=== PATIENT | male | born 1975 ===

== ENCOUNTER 2024-04-12 13:20 | Emergency (ER) | payer OTHER, SELFPAY ==
[2024-04-12] VITALS (16 sets, daily range): BP systolic 120–137; BP diastolic 74–89; PULSE 62–86; RESP 16–20; TEMP 36.6; O2SAT 95–100; BMI 30.8
[2024-04-12] MEDS: ONDANSETRON 2 MG/ML inj 4 MG IVP (13:30)
--- NOTE | 2024-04-12 13:34 | CRLHL7_ITS ---
For Patients: As a result of the Century Cures Act, medical imaging exams and procedure reports are released immediately into your electronic medical record. You may view this report before your referring provider. If you have questions, please contact your health care provider. INDICATION: Right flank pain. COMPARISON: None. TECHNIQUE: CT abdomen and pelvis without intravenous contrast; coronal and sagittal reformats. FINDINGS: Calcified granuloma left lingula and right lower lobe. No pulmonary nodules through the lung bases. No pleural effusion. No focal hepatic or splenic pathology. No pancreatic pathology. A tiny gallstone. No adrenal pathology. No kidney stones or obstructive uropathy. No retroperitoneal lymphadenopathy. No evidence of abdominal or pelvic ascites. Normal appendix. CT study of the pelvis is unremarkable. Impression : 1. Tiny gallstone. 2. No kidney stones or obstructive uropathy. 3. Normal appendix. 4. Negative unenhanced CT abdomen and pelvis . Please note that all CT scans at this facility use dose modulation, iterative reconstruction, and/or weight-based dosing when appropriate to reduce radiation dose to as low as reasonably achievable. Dictated by Ana Paula Bridges MD @ 04/12/2024 3:20:01 PM (Electronically Signed)
--- NOTE | 2024-04-12 13:37 | ED_ITS ---
HPI - General Adult General Chief complaint: Flank Pain Stated complaint: back and abd pain, right side Time Seen by Provider: 04/12/24 13:27 Source: patient Mode of arrival: ambulatory Limitations: no limitations History of Present Illness HPI narrative: 49-year-old, generally healthy male on no medications, presenting today with right flank pain. Pain has been present for a couple of days but got significantly worse today. It caused him to feel very nauseated in diaphoretic. He states that standing up makes the pain worse. He denies diarrhea or constipation, last bowel movement was earlier today and was normal. He denies increased urinary frequency, urgency or dysuria. He denies any blood in his urine or stool. He has not vomited. He denies fevers or chills. The pain generally stays in the right flank area and does not radiate. He denies any trauma to the area. Related Data Previous Rx's ?Medication ?Instructions ?Recorded ketorolac 10 mg tablet 10 mg PO TID 5 days #15 tabs 04/12/24 tamsulosin 0.4 mg capsule (Flomax) 0.4 mg PO DAILY #30 caps 04/12/24 Allergies Allergy/AdvReac Type Severity Reaction Status Date / Time No Known Drug Allergies Allergy Verified 04/12/24 13:28 Review of Systems Status of ROS: Reports: 10 or more systems reviewed and unremarkable except as noted in History and below [facility] Social History Smoking Status: Former smoker Do you use any of these nicotine containing products: None Second hand tobacco smoke exposure: No How often do you have a drink containing alcohol: 2-4 times a month AUDIT-C Alcohol total score: 2 Non-prescribed substance use: denies use Exam Narrative: Exam Narrative: Well-nourished well-developed patient in mild distress. Alert and oriented. Answers questions appropriately. Mood and affect are appropriate. Thoughts are goal oriented and rational. No tangential or magical thinking noted. Patient speaks in full sentences without needing to catch his breath. He is slightly diaphoretic. HEENT: Normocephalic atraumatic. Pupils are equally round reactive to light. Extraocular muscles are intact. Conjunctivae are moist without any icterus noted. Moist mucous membranes. Posterior pharynx is normal. Neck is soft without any lymphadenopathy or thyromegaly. No masses are appreciated. Cardiovascular: Heart is regular rate and rhythm S1 and S2 are present without any murmurs. Lungs: Clear to auscultation bilaterally no wheezes rhonchi or rales are appreciated. Patient takes deep breaths without any discomfort. Abdomen: Soft and nontender nondistended with hypoactive bowel sounds. No guarding or rebound. No masses or organomegaly appreciated. He does not have any CVA tenderness. I cannot reproduce his pain on examination. Negative Levine sign. Extremities: Bilateral lower extremities are without edema. Skin: Well perfused without any obvious rashes. Const: Vital Signs, click to edit/add: Vital Signs - 24 hr 04/12/24 13:26 04/12/24 13:26 04/12/24 14:02 Temperature 97.8 F Pulse Rate 73 62 Pulse Rate [Pulse Oximeter] 68 Respiratory Rate 18 20 Blood Pressure 137/89 122/75 Blood Pressure [Le ft Upper Arm] 137/89 Pulse Oximetry 100 100 100 Oxygen Delivery Me thod Room Air Room Air 04/12/24 14:31 04/12/24 14:32 04/12/24 14:45 Temperature Pulse Rate 71 72 70 Pulse Rate [Pulse Oximeter] Respiratory Rate 16 Blood Pressure 121/76 Blood Pressure [Le ft Upper Arm] Pulse Oximetry 100 100 99 Oxygen Delivery Me thod 04/12/24 15:00 04/12/24 15:02 04/12/24 15:07 Temperature Pulse Rate 75 76 65 Pulse Rate [Pulse Oximeter] Respiratory Rate Blood Pressure 125/77 122/77 Blood Pressure [Le ft Upper Arm] Pulse Oximetry 98 98 100 Oxygen Delivery Me thod 04/12/24 15:15 Temperature Pulse Rate 83 Pulse Rate [Pulse Oximeter] Respiratory Rate Blood Pressure Blood Pressure [Le ft Upper Arm] Pulse Oximetry 95 Oxygen Delivery Me thod Course Course ED Course: IV is established and patient is given Zofran, Toradol and fluids. Labs were ordered: CBC is unremarkable. Lactate is normal. Chemistries are unremarkable. Normal LFTs aside from a slightly elevated total bilirubin at 1.8. Normal CRP. Normal lipase. He UA has trace protein and trace ketones, no blood. Abdominal CT without contrast is ordered: Unremarkable. Re-examination the patient reveals that he did have some relief with the Toradol, but the pain is slowly returning. He also states that he now feels the pain radiating around the abdomen a little bit into the anterior right lower quadrant. He denies any testicular pain. We discussed the possibility of testicular torsion or abnormality causing his pain patient states that ?I just do not think that that is what is going on?. We discussed ultrasound of the scrotum, patient declined at this time. Vital Signs Vital signs: Initial Vital Signs Temperature 97.8 F 04/12/24 13:26 Temperature Source Temporal Artery Scan 04/12/24 13:26 Pulse Rate 73 04/12/24 13:26 Respiratory Rate 18 04/12/24 13:26 Blood Pressure 137/89 04/12/24 13:26 Blood Pressure Mean 105 04/12/24 13:26 Blood Pressure Position Sitting 04/12/24 13:26 Pulse Oximetry 100 04/12/24 13:26 Oxygen Delivery Method Room Air 04/12/24 13:26 Vital Signs Temperature 97.8 F 04/12/24 13:26 Pulse Rate 73 04/12/24 13:26 Respiratory Rate 18 04/12/24 13:26 Blood Pressure 137/89 04/12/24 13:26 Pulse Oximetry 100 04/12/24 13:26 Oxygen Delivery Method Room Air 04/12/24 13:26 Temperature 97.8 F 04/12/24 13:26 Pulse Rate 83 04/12/24 15:15 Respiratory Rate 16 04/12/24 14:31 Blood Pressure 122/77 04/12/24 15:07 Pulse Oximetry 95 04/12/24 15:15 Oxygen Delivery Method Room Air 04/12/24 13:26 Medications Administered Medications: Discontinued Medications Generic Name Dose Route Start Last Admin Trade Name Freq PRN Reason Stop Dose Admin Sodium Chloride 1,000 mls @ 1,000 mls/hr 04/12/24 13:30 04/12/24 14:41 0.9 % Sodium Chloride 1000 Ml IV 04/12/24 14:29 Infused .Q1H JA Infusion Ketorolac Tromethamine 30 mg 04/12/24 13:28 04/12/24 13:41 Ketorolac 30 Mg/Ml Inj IVP 04/12/24 13:29 30 mg ONCE ONE Administration Ondansetron HCl 4 mg 04/12/24 13:28 04/12/24 13:30 Ondansetron 2 Mg/Ml Inj IVP 04/12/24 13:29 4 mg ONCE ONE Administration Medical Decision Making MDM Narrative Medical decision making narrative: 49-year-old male with right flank pain. Symptoms consistent with n ephrolithiasis. Other differential diagnoses include musculoskeletal pain, constipation. Given normal blood work and CT do not think we need to be concerned about an appendicitis or pyelonephritis at this time. Patient will be discharged home with Toradol, Flomax, [place]. Return to the ER if he develops uncontrollable pain, intractable vomiting or fevers. Otherwise follow-up with primary care in next week. Lab Data Lab results reviewed: Yes I reviewed the patient's lab results Labs: Lab Results 04/12/24 04/12/24 Range/Units 13:30 13:58 WBC 8.02 (4.50-11.00) K/uL RBC 5.09 (4.30-5.90) m/uL Hgb 14.5 (13.5-17.5) gm/dL Hct 42.3 (37.0-53.0) % MCV 83 (80-100) fL MCH 29 (26-34) pg MCHC 34 (32-36) gm/dL RDW Coeff of Juan 12.0 (11.5-15.5) % Plt Count 201 (140-440) K/uL Neut % (Auto) 83.7 H (42.0-72.0) % Lymph % (Auto) 11.1 L (20-44) % [place] % (Auto) 4.9 (0.0-11.0) % Eos % (Auto) 0.0 (0.0-7.0) % Baso % (Auto) 0.2 (0.0-3.0) % Neut # (Auto) 6.70 (1.7-7.0) K/uL Lymph # (Auto) 0.90 (0.90-2.90) K/uL [place] # (Auto) 0.40 (0.00-0.90) K/UL Eos # (Auto) 0.00 (0.00-0.50) K/uL Baso # (Auto) 0.02 (0.00-0.30) K/uL Abs Immat Gran (auto) 0.01 (0.00-0.30) K/uL Imm/Tot Granulo (auto) 0.1 % Sodium 137 (135-149) mmol/L Potassium 4.8 (3.6-5.1) mmol/L Chloride 104 (96-114) mmol/L Carbon Dioxide 27 (20-32) mmol/L Anion Gap 6 L (7-15) mEq/L BUN 18 (5-24) mg/dL Creatinine 0.9 (0.5-1.5) mg/dL Estimated Creat Clear 102.52 Estimated GFR 105 ml/min Glucose 110 (60-115) mg/dL Lactate 1.0 (0.5-1.9) mmol/L Calcium 9.2 (8.4-10.6) mg/dL Total Bilirubin 1.8 H (0.1-1.5) mg/dL Direct Bilirubin 0.4 (0.0-0.5) mg/dL AST 32 (12-35) U/L ALT 40 (4-50) U/L Alkaline Phosphatase 60 (40-150) U/L C-Reactive Protein < 0.5 L (0.5-1.0) mg/dL Total Protein 7.6 (6.0-8.3) g/dL Albumin 4.9 (3.3-5.0) g/dL Lipase 158 (23-300) U/L Urine Color Yellow (Yellow) Urine Appearance Slightly Cloudy A (Clear) Urine pH 8.5 (5.0-8.5) Ur Specific [place] 1.020 (1.000-1.030) Urine Protein Trace A (Negative) Urine Glucose (UA) Negative (Negative) Urine Ketones Trace A (Negative) Urine Blood Negative (Negative) Urine Nitrite Negative (Negative) Urine Bilirubin Negative (Negative) Urine Urobilinogen 0.2 (0.2-1.0) Ur Leukocyte Esterase Negative (Negative) Urine RBC 0-2 (0-2) Urine WBC 0-2 (0-5) Ur Squamous Epith Cells Few (None-Few) Amorphous Sediment Moderate A (None) Urine Bacteria Few A (None) Imaging Data CT scan - abdomen: Attestation: I have reviewed the pertinent imaging results. Radiologist's impression: CT abdomen and pelvis without intravenous contrast; coronal and sagittal reformats. FINDINGS: Calcified granuloma left lingula and right lower lobe. No pulmonary nodules through the lung bases. No pleural effusion. No focal hepatic or splenic pathology. No pancreatic pathology. A tiny gallstone. No adrenal pathology. No kidney stones or obstructive uropathy. No retroperitoneal lymphadenopathy. No evidence of abdominal or pelvic ascites. Normal appendix. CT study of the pelvis is unremarkable. Impression : 1. Tiny gallstone. 2. No kidney stones or obstructive uropathy. 3. Normal appendix. 4. Negative unenhanced CT abdomen and pelvis . Discharge Plan Discharge Clinical Impression: Acute flank pain Patient Disposition: Home, Self-Care Condition: Unchanged Additional Instructions: Take Flomax daily and increase her daily fluid intake. Take Toradol as needed for pain management, if you need more pain management on top of that okay to take [place]. [place] can cause confusion, dizziness, constipation. Do not operate heavy machinery while taking this medication. Follow-up with your primary care provider within the week. Return to the emergency department if you develop fever, uncontrollable pain or uncontrollable vomiting. [place] sent to [facility]. Prescriptions: New ketorolac 10 mg tablet 10 mg PO TID 5 Days Qty: 15 0RF tamsulosin [Flomax] 0.4 mg capsule 0.4 mg PO DAILY Qty: 30 0RF Follow Up/Referrals: Nuria Herrera DO [Staff Physician] - Stand Alone Forms: [facility] Info Instructions
[2024-04-12 13:41] LABS: Basophils Absolute Auto 0.02 K/uL (0.00-0.30); Basophils Percent Auto 0.2 % (0.0-3.0); Hematocrit 42.3 % (37.0-53.0); Hemoglobin* 14.5 gm/dL (13.5-17.5); Immature Granulocytes Abs Auto 0.01 K/uL (0.00-0.30); Immature Granulocytes Pct Auto 0.1 %; Lymphocytes Percent Auto 11.1 % (20-44); Mean Corpuscular HGB Conc 34 gm/dL (32-36); Mean Corpuscular Hemoglobin 29 pg (26-34); Mean Corpuscular Volume 83 fL (80-100); Monocytes Percent Auto 4.9 % (0.0-11.0); Neutrophils Percent Auto 83.7 % (42.0-72.0); Platelet Count* 201 K/uL (140-440); Red Blood Count 5.09 m/uL (4.30-5.90); Slide Review Reflex No; White Blood Count* 8.02 K/uL (4.50-11.00)
[2024-04-12] MEDS: 0.9 % SODIUM CHLORIDE 1000 ml 1,000 ML IV (13:41)
[2024-04-12] MEDS: KETOROLAC 30 MG/ML inj IVP (13:41)
[2024-04-12 13:55] LABS: Albumin* 4.9 g/dL (3.3-5.0); Chloride* 104 mmol/L (96-114)
[2024-04-12 13:56] LABS: Potassium* 4.8 mmol/L (3.6-5.1); Sodium* 137 mmol/L (135-149)
[2024-04-12 13:58] LABS: Anion Gap 6 mEq/L (7-15); Aspartate Amino Transferase* 32 U/L (12-35); Bilirubin Direct* 0.4 mg/dL (0.0-0.5); Bilirubin Total* 1.8 mg/dL (0.1-1.5); Carbon Dioxide* 27 mmol/L (20-32); Creatinine* 0.9 mg/dL (0.5-1.5); Est. Creatinine Clearance* 102.52; Estimated Glomerular Filt Rate 105 ml/min; Total Protein* 7.6 g/dL (6.0-8.3)
[2024-04-12 13:59] LABS: Alanine Aminotransferase* 40 U/L (4-50); Alkaline Phosphatase* 60 U/L (40-150); Blood Urea Nitrogen* 18 mg/dL (5-24); Calcium* 9.2 mg/dL (8.4-10.6); Glucose* 110 mg/dL (60-115); Lipase* 158 U/L (23-300)
[2024-04-12 14:03] LABS: C Reactive Protein* < 0.5 mg/dL (0.5-1.0)
[2024-04-12 14:06] LABS: Appearance Urine Slightly Cloudy (Clear); Bilirubin Urine Negative (Negative); Blood Urine Negative (Negative); Color Urine Yellow (Yellow); Glucose Urine Negative (Negative); Ketones Urine Trace (Negative); Leukocyte Esterase Urine Negative (Negative); Nitrite Urine Negative (Negative); Protein Urine Trace (Negative); Urobilinogen Urine 0.2 (0.2-1.0); pH Urine 8.5 (5.0-8.5)
[2024-04-12 14:17] LABS: RBC Urine 0-2 (0-2)
[2024-04-12 14:18] LABS: Amorphous Sediment Urine Moderate; Bacteria Urine Few; Squamous Epithelial Cell Urine Few (None-Few); WBC Urine 0-2 (0-5)
--- NOTE | 2024-04-12 15:46 | CRLHL7_ITS ---
For Patients: As a result of the Century Cures Act, medical imaging exams and procedure reports are released immediately into your electronic medical record. You may view this report before your referring provider. If you have questions, please contact your health care provider. INDICATION: Flank pain and abdominal pain; evaluate for venous thromboembolism. COMPARISON: CT abdomen and pelvis without intravenous contrast April 12, 2024. TECHNIQUE: CT chest, abdomen and pelvis with intravenous contrast; coronal and sagittal reformats. FINDINGS: No evidence of acute or chronic pulmonary thromboembolism. No abnormal mediastinal or hilar lymphadenopathy. Normal size cardiac silhouette without any pericardial effusion. No evidence of aortic aneurysm or dissection. Origin of the great vessels is unremarkable. Calcified granulomas both lungs. No evidence of pleural effusion or chest wall pathology. No focal hepatic or splenic pathology. No pancreatic pathology. Tiny gallstones. No adrenal pathology. 1 cm cortical cyst upper pole left kidney. No obstructive uropathy or perinephric pathology. Normal appendix. CT study of the pelvis is unremarkable. No evidence of thrombosis involving either the inferior vena cava or the iliac veins IMPRESSION: 1. No evidence of acute or chronic pulmonary thromboembolism. 2. No evidence of aortic aneurysm or dissection. 3. Tiny gallstone. 4. 1 cm simple cortical cyst left kidney. 5. Normal appendix. 6. Negative CT chest, abdomen and pelvis with intravenous contrast. 7. No evidence of thrombosis involving either the inferior vena cava or the iliac veins. Please note that all CT scans at this facility use dose modulation, iterative reconstruction, and/or weight-based dosing when appropriate to reduce radiation dose to as low as reasonably achievable. Dictated by Ana Paula Bridges MD @ 04/12/2024 5:39:52 PM (Electronically Signed)
[2024-04-12] MEDS: HYDROmorphone 0.5 mg/0.5 ml inj IVP (16:08)
== END 2024-04-12 17:50 | disposition home or self-care (01) ==
PROVIDERS: Emergency Provider Family Medicine
DX: R10.11 Right upper quadrant pain (principal)
CPT/HCPCS: 36415; 71260; 74176; 74177; 80048; 80076; 81001; 83605; 83690; 85025; 86140; 87086; 96374; 96375; 99283; 99284; J1170; J1885; J2405; J7030; Q9967